=== PATIENT | female | born 2000 | race Caucasian/White ===

== ENCOUNTER 2024-08-05 19:40 | Emergency (ER) | payer SELFPAY ==
[2024-08-05 19:50] VITALS: BP 177/111; PULSE 74; RESP 16; TEMP 36.9; O2SAT 99; BMI 29.0
[2024-08-05 19:52] VITALS: BP 177/111; PULSE 77; O2SAT 97
[2024-08-05 19:53] VITALS: BP 169/100; PULSE 72; O2SAT 99
[2024-08-05 20:00] VITALS: BP 164/99; PULSE 77; O2SAT 99
--- NOTE | 2024-08-05 20:05 | PC.NURSE ---
Pt reports recently started wellbutrin.
[2024-08-05 20:30] VITALS: PULSE 74; O2SAT 98
--- NOTE | 2024-08-05 20:35 | ED.GENADULT ---
HPI - General Adult General Chief complaint: Hypertension Stated complaint: high BP, heacache Time Seen by Provider: 08/05/24 20:02 Source: patient Mode of arrival: Ambulatory History of Present Illness HPI narrative: 23-year-old female with history of migraines presents by private vehicle from the walk-in clinic for headache, elevated blood pressure readings. Patient states that for the last 2 months she has been told that she was borderline blood pressures and she was being monitored by her primary care doctor in [place]. 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 Was previously on sumatriptan, but had bad reactions to this medication and has not taken it for several months. Patient reports a migraine for the last 2-3 days since coming up to [place]. Today she went to the walk-in clinic and because of her symptoms and her elevated blood pressure reading she was referred to the ER. Prior to being discharged from the walk-in clinic she was given a shot of Toradol and nausea medication. Patient continues to report migraine headache. She states that this is similar to previous migraines that she has had in the past. Related Data Home Medications Medication Instructions Recorded Confirmed bupropion HCl 150 mg tablet,12 hr 150 mg PO BID 08/05/24 08/05/24 sustained-release (Wellbutrin SR) Allergies Allergy/AdvReac Type Severity Reaction Status Date / Time No Known Drug Allergies Allergy Verified 08/05/24 20:17 Patient History Social History Smoking Status: Never smoker Smoking Status: Never smoker Exam Initial Vital Signs Initial Vital Signs: Vital Signs Temperature 98.4 F 08/05/24 19:50 Pulse Rate 74 08/05/24 19:50 Respiratory Rate 16 08/05/24 19:50 Blood Pressure 177/111 H 08/05/24 19:50 Pulse Oximetry 99 08/05/24 19:50 Oxygen Delivery Method Room Air 08/05/24 19:50 Const: Awake, alert, no acute distress, nontoxic appearing HEENT: PERRLA, EOMI, TM normal bilaterally Cardiac: regular rate, regular rhythm RESP: unlabored, speaking in complete sentences without dyspnea Skin: Warm, Dry, intact, no rashes Neuro: AO x3, CN II-XII grossly intact, moves all extremities Course Orders Ordered: Discontinued Medications Diphenhydramine HCl (Diphenhydramine 50 Mg/Ml Vial) 50 mg IV NOW ONE Stop: 08/05/24 20:35 Last Admin: 08/05/24 20:54 Dose: 50 mg Documented By: CALEB Acetaminophen (Ofirmev) 1,000 mg in 100 mls @ 400 mls/hr IV NOW ONE Stop: 08/05/24 20:48 Last Infusion: 08/05/24 21:29 Dose: Infused Documented By: Admin: 08/05/24 20:56 Dose: 400 mls/hr Documented By: CALEB Sodium Chloride (Normal Saline 0.9%) 1,000 mls @ 1,000 mls/hr IV BOLUS ONE Stop: 08/05/24 21:33 Last Infusion: 08/05/24 22:00 Dose: Infused Documented By: Admin: 08/05/24 20:52 Dose: 1,000 mls/hr Documented By: CALEB Metoclopramide HCl (Metoclopramide 10 Mg/2 Ml Inj) 10 mg IV NOW ONE Stop: 08/05/24 20:35 Last Admin: 08/05/24 20:52 Dose: 10 mg Documented By: CALEB Vital Signs Vital signs: Vital Signs - 8 hr 08/05/24 19:50 08/05/24 19:52 08/05/24 19:52 Temperature 98.4 F Pulse Rate 74 77 Respiratory Rate 16 Blood Pressure 177/111 H 177/111 H Pulse Oximetry 99 97 Oxygen Delivery Method Room Air 08/05/24 19:53 08/05/24 19:53 08/05/24 20:00 Temperature Pulse Rate 72 Respiratory Rate Blood Pressure 169/100 H 164/99 H Pulse Oximetry 99 Oxygen Delivery Method 08/05/24 20:00 08/05/24 20:30 08/05/24 21:56 Temperature Pulse Rate 77 74 Respiratory Rate Blood Pressure 134/77 Pulse Oximetry 99 98 Oxygen Delivery Method 08/05/24 21:56 Temperature Pulse Rate 74 Respiratory Rate 18 Blood Pressure Pulse Oximetry 100 Oxygen Delivery Method Medical Decision Making MDM Narrative Additional Information: Well-appearing patient with migraine headache. Started after coming to [place] for her post deployment leave. May have component of barometric changes since weather in [place] significantly different from [facility] [place]. patient denies worst headache of life. Incidentally noted to have elevated blood pressure readings, patient states that she was currently being followed by her primary care doctor for intermittent high blood pressures, however is not taking any medications. Part of patient's elevated blood pressure readings today may be related to being in pain currently. Patient has already received Toradol, Reglan, Benadryl, IV fluids, IV tylenol ordered. Patient reports significant improvement in headache after migraine cocktail. Blood pressure has returned to normal limits. Patient counseled to continue to take Tylenol and ibuprofen as needed at home, and to follow up with her primary care doctor if she starts getting more recurrent migraines, however this may be related to weather changes in [place]. Discharge Plan Departure Patient Disposition: Home Clinical Impression: Migraine Instructions: DI for Migraine Activity Restrictions/Additional Instructions: Continue to take Tylenol and ibuprofen as needed for pain/headache. Drink plenty of fluids. Continue to follow up with your PCM in [place] for elevated blood pressure readings, however with migraine control here your blood pressure came back down to normal levels. Prescriptions: No Action bupropion HCl [Wellbutrin SR] 150 mg Tablet Sustained-Release 12 Hr 150 mg PO BID Stand Alone Forms: Patient Portal/API/Survey
[2024-08-05] MEDS: METOCLOPRAMIDE 10 MG/2 ML INJ IV (20:52)
[2024-08-05] MEDS: SODIUM CHLORIDE 0.9% 1,000 ML 1000 ML IV (20:52)
[2024-08-05] MEDS: diphenhydrAMINE 50 MG/ML VIAL IV (20:54)
[2024-08-05] MEDS: ACETAMINOPHEN IV 1,000 MG/100 ML VIAL 400 MG IV (20:56)
[2024-08-05 21:56] VITALS: BP 134/77; PULSE 74; RESP 18; O2SAT 100
== END 2024-08-05 22:40 | disposition home or self-care (01) ==
PROVIDERS: Emergency Provider Emergency Medicine
DX: G43.909 Migraine, unspecified, not intractable, without status migrainosus (principal); R03.0 Elevated blood-pressure reading, without diagnosis of hypertension
CPT/HCPCS: 96365; 96375; 99283; 99284; J0134; J1200; J2765